=== PATIENT | male | born 1990 ===

== ENCOUNTER 2019-11-12 08:09 | Emergency (ER) | payer OTHER ==
[~2019-11-12] VITALS: Ht 187 cm; Wt 88.0 kg
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
[2019-11-12] MEDS ORDERED: HYDR-4226 PO (09:40)
[2019-11-12] MEDS ORDERED: IBUP-1780 PO (09:40)
[2019-11-12 09:59] VITALS: BP 127/77
== END 2019-11-12 10:00 | disposition home or self-care (01) ==
LOC: ER FS 08:11
DX: S83.92XA Sprain of unspecified site of left knee, initial encounter (principal); S46.912A Strain of unspecified muscle, fascia and tendon at shoulder and upper arm level, left arm, initial encounter; S16.1XXA Strain of muscle, fascia and tendon at neck level, initial encounter; Z87.891 Personal history of nicotine dependence; V58.5XXA Driver of pick-up truck or van injured in noncollision transport accident in traffic accident, initial encounter; Y92.411 Interstate highway as the place of occurrence of the external cause
CPT/HCPCS: 72125; 73020; 73562